=== PATIENT | male | born 2000 | race Caucasian/White ===

== ENCOUNTER 2018-05-25 12:45 | Emergency (ER) | payer OTHER ==
[~2018-05-25] VITALS: Ht 172.7 cm; Wt 76.7 kg
[~2018-05-25 12:45] MED LIST: XANAX0.25 MG PO
[2018-05-25 12:50] VITALS: Ht 172.7 cm; Wt 76.7 kg
[2018-05-25 15:04] VITALS: BP 116/66
== END 2018-05-25 15:04 | disposition home or self-care (01) ==
LOC: ED 12:45
DX: J11.1 Influenza due to unidentified influenza virus with other respiratory manifestations (principal); F41.9 Anxiety disorder, unspecified